=== PATIENT | female | born 1980 | race Caucasian/White ===

== ENCOUNTER → 2018-02-02 15:31 | Outpatient (REF) | payer BC, SELFPAY ==
--- NOTE | 2018-02-02 11:15 | PAPFT_PTH ---
PATIENT: Yoajna Cordova LOC: [facility] U#:[id number] AGE/SX: 45/F ROOM: RE02/02/[address]: QUITA Tao : 1980 BED: DIS: SPEC #: [id number] RECD: 02/02/18 17:32 STATUS: DIXON GRIFFIN #: [id number] CAITY: 02/02/18 11:[address]: Shannan Kennedy DEPT: [facility] Cytology RECD BY: Anna Marie Rogers ENTERED: 02/02/18 17:32 SP TYPE: PAPFT OTHR DR: QUITA Rehman Tissues: 1 - CX/ENDOCX FOR PAP SMEARS Procedures: PAP THIN PREP/UVM Screening Comments: [id number]
== END ==
LOC: LBN 15:31
PROVIDERS: PCP Nurse Practitioner Family; Visit Provider Nurse Practitioner Family
DX: Z12.4 Encounter for screening for malignant neoplasm of cervix (principal)
CPT/HCPCS: 88142

== ENCOUNTER → 2018-02-11 07:53 | Outpatient (REF) | payer SELFPAY | LOC: OM 07:53 | PROVIDERS: PCP Nurse Practitioner Family; Visit Provider Nurse Practitioner Family | DX: Z02.83 Encounter for blood-alcohol and blood-drug test (principal) ==

== ENCOUNTER 2019-06-30 15:33 | Outpatient (REF) | payer OTHER, SELFPAY ==
--- NOTE | 2019-06-30 14:55 | PAPFT_PTH ---
PATIENT: Yojana Cordova LOC: [facility] U#:[id number] AGE/SX: 39/F ROOM: RE06/30/[address]: Jim Kc RN : 1980 BED: DIS: 06/30/2019 SPEC #: [id number] RECD: 06/30/19 17:08 STATUS: DIXON GRIFFIN #: [id number] CAITY: 06/30/19 14:[address]: Jim Kc DEPT: [facility] Cytology RECD BY: Anna Marie Rogers ENTERED: 06/30/19 17:08 SP TYPE: PAPFT OTHR DR: Shruti Zaidi, QUITA Tissues: 1 - CX/ENDOCX FOR PAP SMEARS Procedures: PAP THIN PREP/UVM Screening HPV DNA PROBE Comments: [id number]
== END 2019-06-30 15:53 ==
LOC: LBN 15:33
PROVIDERS: PCP Nurse Practitioner Family; Visit Provider Advanced Practice Midwife
DX: Z12.4 Encounter for screening for malignant neoplasm of cervix (principal); Z11.51 Encounter for screening for human papillomavirus (HPV)
CPT/HCPCS: 88142; 87624

== ENCOUNTER 2019-08-17 01:26 | Outpatient (CLI) | payer OTHER, SELFPAY ==
--- NOTE | 2019-08-17 07:45 | DI.MAMMO_ITS ---
EXAM: MG MAMMO SCREENING CLINICAL HISTORY: screening, Z12.39 TECHNIQUE: Bilateral full field digital CC and MLO mammographic images were obtained with 3D tomosyn thesis and utilizing computer aided detection (CAD). COMPARISON: No priors for comparison. This is a baseline examination. FINDINGS: Masses/Architectural Distortion: None seen. Microcalcifications: No suspicious pleomorphic-type are seen. Skin Thickening/Nipple Retraction: None. IMPRESSION: 1. No significant interval change with no specific features of malignancy noted. 2. Unless there is more urgent need, screening mammography is recommended, as per [employer] guidelines. ACR BI-RAD Category- 1 Negative Breast Density - Category C - Heterogeneously dense The mammogram demonstrates the patient's breast tissue is dense. Dense breast tissue is very common a nd is not abnormal but dense breast tissue can make it harder to find cancer on a mammogram. Also, de nse breast tissue may increase their breast cancer risk. This information about the result of the [facility] mogram report was provided to the patient to raise their awareness. Use this report when you speak wi th the patient about their risks for breast cancer, which includes their family history. At that time , you may recommend for more screening tests (Ultrasound or MRI) as they might be useful based on the ir risk. A negative radiographic report should not delay biopsy if a dominant or clinically suspicious mass is present. Up to ten percent of cancers are not identified on mammography. A negative report may reinforce clinical impression. Adenosis and dense breasts may obscure an underlying neoplasm. False positive reports average 6 to 10%. Patient will receive a letter notifying them of these results.
== END 2019-08-17 01:46 ==
PROVIDERS: PCP Nurse Practitioner Family; Visit Provider Advanced Practice Midwife
DX: Z12.31 Encounter for screening mammogram for malignant neoplasm of breast (principal)
CPT/HCPCS: 77063; 77067

== ENCOUNTER 2019-08-31 10:14 | Outpatient (CLI) | payer OTHER, SELFPAY ==
[2019-08-31 10:45] LABS: Abs Immature Grans 0.01 k/cumm (0.0-0.09); Absolute Basophil Count 0.02 k/cumm (0.0-0.2); Absolute Eosinophil Count 0.13 k/cumm (0.0-0.7); Absolute Lymphocyte Count 1.94 k/cumm (1.2-3.4); Absolute Monocyte Count 0.51 k/cumm (0.11-0.7); Basophils % 0.3; Eosinophils % 2.2; HCT 42.7 % (36.0-46.0); HGB 14.3 g/dL (12.0-15.5); Immature Grans % 0.2 %; Lymphocytes % 32.3; Mean Corp. HGB Concentration 33.5 g/dL (32.0-36.0); Mean Corpuscular Hemoglobin 29.5 pg (27.0-33.0); Mean Platelet Volume 10.4 fL (8.0-11.0); Monocytes % 8.5; Neutrophils % 56.5; Platelet Count 196 x1000/uL (130-400); RBC 4.85 m/cumm (4.00-5.20); White Blood Cell Count 6.01 k/cumm (4.4-10.8)
== END 2019-08-31 10:34 ==
PROVIDERS: PCP Nurse Practitioner Family; Visit Provider Surgery
DX: R19.4 Change in bowel habit (principal)
CPT/HCPCS: 36415; 85025

== ENCOUNTER 2020-04-22 10:53 | Outpatient (REF) | payer OTHER, SELFPAY ==
[2020-04-24 13:06] LABS: SARS-CoV-2 RNA Not Detected (NotDetected); SARS-CoV-2 RNA Source Nasal/Nares
== END 2020-04-22 11:13 ==
LOC: LBN 10:53
PROVIDERS: PCP Nurse Practitioner Family; Visit Provider Pediatrics
DX: R05 Cough (principal)
CPT/HCPCS: U0003

== ENCOUNTER 2020-10-26 12:07 | Outpatient (REF) | payer OTHER, SELFPAY ==
--- NOTE | 2020-10-26 10:20 | PAPFT_PTH ---
PATIENT: Yojana Cordova LOC: [facility] U#:[id number] AGE/SX: 40/F ROOM: RE10/26/[address]: QUITA Tao : 1980 BED: DIS: 10/26/2020 SPEC #: [id number] RECD: 10/26/20 12:54 STATUS: DIXON REBryanna #: [id number] CAITY: 10/26/20 10:[address]: Shannan Kennedy DEPT: [facility] Cytology RECD BY: Anna Marie Rogers ENTERED: 10/26/20 12:54 SP TYPE: PAPFT CHAYA DR: QUITA Rehman Tissues: 1 - CX/ENDOCX FOR PAP SMEARS Procedures: PAP THIN PREP/UVM Screening HPV DNA PROBE Comments: [id number]
== END 2020-10-26 12:08 | disposition home or self-care (01) ==
LOC: LBN 12:07
PROVIDERS: PCP Nurse Practitioner Family; Visit Provider Nurse Practitioner Family
DX: Z12.4 Encounter for screening for malignant neoplasm of cervix (principal); Z11.51 Encounter for screening for human papillomavirus (HPV)
CPT/HCPCS: 88142; 87624

== ENCOUNTER 2020-10-29 03:18 | Outpatient (CLI) | payer OTHER, SELFPAY ==
[2020-10-29 08:32] LABS: Anion Gap 8.6 mmol/L (3-11); BUN 12 mg/dL (7-18); CO2 28.4 mmol/L (21.0-32.0); CREATININE 0.8 mg/dL (0.55-1.02); Calcium 8.8 mg/dL (8.5-10.1); Calculated LDL 135 mg/dL (<100); Chloride 104 mmol/L (98-107); Cholesterol 200 mg/dL (<200); Glucose 92 mg/dL (74-106); HDL Cholesterol 57 mg/dL (40-60); Sodium 141 mmol/L (136-145); Triglyceride 40 mg/dL (<150)
== END 2020-10-29 03:19 | disposition home or self-care (01) ==
LOC: LBO 03:19
PROVIDERS: PCP Nurse Practitioner Family; Visit Provider Nurse Practitioner Family
DX: Z00.00 Encounter for general adult medical examination without abnormal findings (principal); Z13.220 Encounter for screening for lipoid disorders
CPT/HCPCS: 36415; 80048; 80061

== ENCOUNTER 2021-02-01 12:35 | Outpatient (REF) | payer OTHER, SELFPAY ==
[2021-02-02 12:46] LABS: COVID-19 RT-PCR UVMMC Result Negative (Negative)
== END 2021-02-01 12:36 | disposition home or self-care (01) ==
LOC: LBN 12:35
PROVIDERS: PCP Nurse Practitioner Family; Visit Provider Pediatrics
DX: Z20.822 Contact with and (suspected) exposure to COVID-19 (principal)
CPT/HCPCS: U0003

== ENCOUNTER 2021-06-13 18:32 | Outpatient (REF) | payer OTHER, SELFPAY ==
[2021-06-14 01:39] LABS: COVID-19 RT-PCR UVMMC Result Negative (Negative)
== END 2021-06-13 18:33 | disposition home or self-care (01) ==
LOC: LBN 18:32
PROVIDERS: PCP Nurse Practitioner Family; Visit Provider Pediatrics
DX: Z20.822 Contact with and (suspected) exposure to COVID-19 (principal)
CPT/HCPCS: U0003

== ENCOUNTER → 2022-04-21 01:42 | Outpatient (CLI) | payer OTHER, SELFPAY ==
--- NOTE | 2022-04-21 08:30 | DI.US_ITS ---
Exam(s) US BREAST LT COMPLETE US BREAST RT COMPLETE MG MAMMO DIAGNOSTIC BI EXAM: MG MAMMO DIAGNOSTIC BI AND COMPLETE BREAST ULTRASOUND CLINICAL HISTORY: left breast lump, N63.20. TECHNIQUE: BILATERAL CC AND MLO mammographic images were obtained with 3D tomosynthesis technique a nd utilizing computer aided detection (CAD). We also performed spot compression views of the area of clinical concern in the left breast. Also performed BILATERAL COMPLETE BREAST ULTRASOUND including all 4 quadrants of both breasts, the re troareolar regions and both axillary regions. COMPARISON: Prior mammograms were reviewed, the most recent being August 2019. This 41-year-old ban ent feels a new lump in her left breast. FINDINGS: DIAGNOSTIC BILATERAL MAMMOGRAM: The fibroglandular pattern in both breasts is very dense, this somewhat decreasing the sensitivity of the mammogram for finding hidden underlying lesions. There are no obvious spiculated masses nor malignant-appearing microcalcification groups in either br east. There are numerous benign punctate microcalcifications noted bilaterally. There are noncalcified well-defined nodular densities bilaterally. There is no distinct mammographic ally visible nodule subjacent to the region of clinical interest skin marker. There is no new architectural distortion or skin thickening-traction. We proceeded with breast ultrasound. BILATERAL COMPLETE BREAST ULTRASOUND: RIGHT breast ultrasound reveals a 6 x 4 millimeter well-defined benign microcyst which corresponds to nodule on the mammogram. There is also a smaller 4 x 3 millimeter benign microcyst at the 1 o'clock position. There is also 4 x 3 millimeter microcyst at the 8 o'clock position and there is a 7 x 5 m illimeter microcysts at the 11 o'clock position. There are no solid lesions in all 4 quadrants of th e right breast. Skin Scanning of the right axilla is negative for significant adenopathy. LEFT breast ultrasound reveals a 5 x 3 millimeter benign microcysts at 12 o'clock position and a 5 x 4 millimeter microcyst at the 1 o'clock position. At the 3-4 o'clock position there is a finding which is difficult to determine asymmetric normal lobu le versus is small well-defined nodule such as fibroadenoma. This measures approximately 11 by 6 mil limeters. At the 9 o'clock and 11 o'clock positions there are 2 adjacent cysts which correspond to what this pa tient is feeling. Combined measurement of the cysts is 2.2 cm x 0.8 cm. No other findings in the 4 quadrants. Scanning of the left axilla is negative for significant adenopathy. IMPRESSION: 1. Very dense fibroglandular tissue on 3D tomography which reveals few nodules bilaterally, all of wh ich appear to be microcyst on bilateral breast ultrasound performed today. 2. What this patient is feeling in her left breast is 2 adjacent benign cysts with combined measureme nt of 2.2 cm x 0.8 cm. 3. Incidentally noted on ultrasound at 3 o'clock position of the left breast is a subtle finding whic h may be an isoechoic slightly lobulated 11 x 6 millimeter nodule (wider than taller with slightly in creased through transmission) such as a fibroadenoma versus just asymmetric glandular tissue at this level. Appropriate follow-up, as discussed by myself with the patient today, is repeat LEFT BREAST ULTRASOUN D in 3 months time to ensure stability of the finding described above at the 3 o'clock position.. The patient was informed of the findings and follow-up recommendations prior to leaving the [facility] t today. BI-RADS Category 3 month - Probably Benign Finding: Recommend follow-up LEFT BREAST ULTRASOUND in 3 M [facility]. Breast density Category C or D implies that the patient has dense breast tissue. Dense breast tissue can make it harder to find cancer on a mammogram. Dense breast tissue is also associated with an incr eased risk of breast cancer. This information about the result of the mammogram report was provided to the patient to raise their awareness. Use this report when you speak with the patient about their risks for breast cancer, which includes their family history. At that time, you may recommend additional screening tests (Ultrasoun d or MRI) as these tests may add significant information. A negative radiographic report should not delay biopsy if a dominant or clinically suspicious mass is present. Up to ten percent of cancers are not identified on mammography. A negative report may reinforce clinical impression. Adenosis and dense breasts may obscure an underlying neoplasm. False positive reports average 6 to 10%. Patient will receive a letter notifying them of these results.
== END ==
PROVIDERS: PCP Nurse Practitioner Family; Visit Provider Nurse Practitioner Family
DX: R92.0 Mammographic microcalcification found on diagnostic imaging of breast (principal); N60.01 Solitary cyst of right breast; N60.02 Solitary cyst of left breast
CPT/HCPCS: 76642; 77062; 77066; G0279

== ENCOUNTER 2022-08-27 01:23 | Outpatient (CLI) | payer OTHER, SELFPAY ==
--- NOTE | 2022-08-27 | DI.US_ITS ---
Exam(s) US NEEDLE LOCAL BREAST WO RAD EXAM: LEFT BREAST MASS,ultrasound guided bx COMPARISON: US US BREAST LT COMPLETE from 07/24/2022 TECHNIQUE: Ultrasound performed using standard protocol. FINDINGS: Sonography was provided for Dr. Zaafr Candelaria during the performance of a left breast biopsy. Please refer to the procedure report for complete details. DATA REPOSITORY:
--- NOTE | 2022-08-27 08:30 | BREAST_PTH ---
PATIENT: Yojana Cordova LOC: DI U#:[id number] AGE/SX: 42/F ROOM: RE08/27/[address]: Zafar Candelaria MD : 1980 BED: DIS: 08/27/2022 SPEC #: [id number] RECD: 08/27/22 12:49 STATUS: DIXON REQ #: [id number] CAITY: 08/27/22 08:[address]: Zafar Candelaria DEPT: Surgical Specimen RECD BY: Anna Marie Rogers ENTERED: 08/27/22 12:50 SP TYPE: Breast OTHR DR: QUITA Rehman Tissues: 1 - BREAST BX NEEDLE Procedures: GROSS AND MICRO LEVEL 4 Comments: [id number]
--- NOTE | 2022-08-27 15:17 | OPPNE_ITS ---
Date of service: 08/27/22 Time of Service: 08:15 Procedure Note Date of procedure: 08/27/22 Procedure: Left breast core needle biospy Surgeon/Proceduralist/Physician: Zafar Candelaria Procedure Diagnosis: Left breast mass Procedure Indications: Yojana is a 42-year-old who was undergoing 3-month follow-up for fibrocystic breast disease. On her most recent ultrasound, one of the lesions was noted to have increased in size from 11 mm to 17 mm. A core needle biopsy was recommended. I discussed the risks and benefits of the procedure with her, and she provided informed consent. Procedure Description: Patient needed assistance of real-time ultrasound guidance, lesion in the left breast was identified. Similar to previous notations, it was in the 3 o'clock position relative to the nipple. I prepped the skin adjacent to the ultrasound probe, and with the assistance of real-time ultrasound guidance, I anesthetized the skin, and the planned trajectory towards the cortical biopsy site using local anesthetic. Next, I made a small incision in the skin with an 11 blade scalpel. Next, under real-time ultrasound guidance, I advanced a 22 mm core needle biopsy device to the edge of the lesion. Again, with real-time ultrasound assistance, attempted 5 core needle biopsies. Four appropriate core specimens were obtained. I then deployed an ultra clip to radio breast tissue marker into the area of the lab. I applied gentle pressure to the skin to assist with hemostasis. I dressed the percutaneous biopsy site using a Band- Aid.
== END 2022-08-27 01:43 ==
LOC: DI 01:23
PROVIDERS: PCP Nurse Practitioner Family; Visit Provider Surgery
DX: N60.12 Diffuse cystic mastopathy of left breast (principal)
CPT/HCPCS: 19083; 88305; 76942

== ENCOUNTER → 2023-05-19 00:50 | Outpatient (CLI) | payer OTHER, SELFPAY ==
--- NOTE | 2023-05-19 12:45 | DI.MAMMO_ITS ---
Exam(s) MAMMO SCREENING EXAM: MAMMO SCREENING CLINICAL HISTORY: screening,z12.39. TECHNIQUE: Bilateral full field digital CC and MLO mammographic images were obtained with 3D tomosyn thesis and utilizing computer aided detection (CAD). COMPARISON: 2019 and 2021 FINDINGS: Masses: A biopsy marker clip is now present in the posterolateral left breast. There is an adjacent area of circumscribed nodularity which has increased in size and compared with the previous exam. Ul trasound is recommended for further evaluation. Circumscribed nodule noted in the supra area right b reast appears unchanged. Cyst was noted on prior ultrasound. Architectural Distortion: None seen. Microcalcifications: No suspicious pleomorphic-type are seen. Scattered benign calcifications bilat erally. Skin Thickening/Nipple Retraction: None. IMPRESSION: 1. Right breast: No significant interval change with no specific features of malignancy noted. 2. Left breast: Increased size of area of nodularity in the posterolateral left breast. Ultrasound r ecommended for further evaluation. BI-RADS Category 0 - Assessment Incomplete: Need additional imaging evaluation Breast Density - Category D - extremely dense Breast Density Category D: The mammogram demonstrates the patient's breast tissue is dense. Dense radu ast tissue is very common and is not abnormal but dense breast tissue can make it harder to find canc er on a mammogram. Also, dense breast tissue may increase their breast cancer risk. This information about the result of the mammogram report was provided to the patient to raise their awareness. Use th is report when you speak with the patient about their risks for breast cancer, which includes their f amily history. At that time, you may recommend for more screening tests (Ultrasound or MRI) as they m ight be useful based on their risk. A negative radiographic report should not delay biopsy if a dominant or clinically suspicious mass is present. Up to ten percent of cancers are not identified on mammography. A negative report may reinforce clinical impression. Adenosis and dense breasts may obscure an underlying neoplasm. False positive reports average 6 to 10%.
== END ==
PROVIDERS: PCP Nurse Practitioner Family; Visit Provider Nurse Practitioner Family
DX: Z12.31 Encounter for screening mammogram for malignant neoplasm of breast (principal); R92.343 Mammographic extreme density, bilateral breasts; R92.1 Mammographic calcification found on diagnostic imaging of breast
CPT/HCPCS: 77063; 77067

== ENCOUNTER 2023-10-01 10:20 | Day surgery (SDC) | payer OTHER, SELFPAY ==
--- NOTE | 2023-09-30 18:42 | W.PM.DSUDISC ---
Date of service: 10/01/23 Time of Service: 11:18 Discharge Plan Disposition Patient Disposition: Home Condition: Good Discharge Details Reason For Visit: screening colonscopy Attending Provider: Zafar Candelaria Primary Care Provider: Shruti Zaidi Home Meds and New Rx's Prescriptions: Continued cholecalciferol (vitamin D3) 4,000 unit capsule 4,000 unit PO DAILY Discontinued bisacodyl [Dulcolax (bisacodyl)] 5 mg tablet,delayed release (DR/EC) 5 mg PO ONCE Qty: 4 0RF polyethylene glycol 3350 17 gram/dose powder 17 g PO DAILY Qty: 238 0RF Discharge Instructions Instructions: Hemorrhoids (GEN), Colorectal Polyps (GEN) Additional Instructions: Yojana, we were able to complete your colonoscopy today without any difficulty. Your prep was excellent and I could see everything just fine. I did find 1 polyp. It was small in size. I removed it completely. It will be sent off for testing, and once we know the nature of that polyp, we can use that information to determine the timing of your next colonoscopy. Incidentally, you have some grade 1 internal hemorrhoids as well. Hopefully these never cause you any problems, but I did attach a little bit of information here regarding typical approaches to hemorrhoids. 1. If tolerated, consume a soft, low fiber diet for 1-2 days. 2. Do not drive, drink alcohol, operate machinery, make critical decisions, or do activities that require coordination or balance for 24 hours. 3. Because air was put into your colon during the procedure, expelling air from your rectum (passing gas or farting) is normal. 4. You may not have a bowel movement for 1-3 days because of the colonoscopy prep. This is normal. 5. Go directly to the emergency room if you notice any of the following: Develop chills (warm to touch), or if you have a thermometer and your temperature is above 101 Difficulty breathing or difficultly swallowing Persistent vomiting Severe abdominal pain, other than gas cramps Severe chest pain Black, tarry stools Any bleeding ? exceeding one tablespoon 6. Call your physician if the site where your intravenous was started becomes red, swollen, painful, and warm to touch. 7. Your physician has reviewed your pre-procedure medications. Please continue to take those medications as previously ordered. You will be given specific information/education regarding any changes to your medications before leaving. Activity:: Activity as Tolerated Diet:: As Tolerated Discharge Orders Discharge Orders: Discharge Order (Routine); Ordered 09/30/23 Ordered By: Zafar Candelaria DS: Diagnosis Discharge Diagnosis (1) Encounter for screening colonoscopy: Status: Acute Asessment and Plan: Follow-up on polypectomy results
--- NOTE | 2023-09-30 18:43 | COLE_ITS ---
Date of service: 10/01/23 Time of Service: 11:20 Colonoscopy Report Date of procedure: 10/01/23 Pre-op diagnosis general: screening colonoscopy Post-op diagnosis procedure note: other (Grade 1 internal hemorrhoids, colon polyp) Procedure: Colonoscopy with polypectomy Surgeon: Zafar Candelaria Anesthesia Type: General:No Airway Estimated blood loss (mL): 5 Pathology: other (0.25 cm flat polyp at 45 cm from the anus) Complications: None Disposition: same day Indications: Yojana is a 43 year old woman who needs a screening colonoscopy Prep: Miralax/Dulcolax Procedure Start Time: 11:01 Procedure End Time: 11:15 Retraction Time: 7 Findings: Grade 1 internal hemorrhoids, 0.25 cm flat polyp at 45 cm from the anus Procedure Description: After the induction of monitored anesthetic care, and with the patient in left lateral decubitus position, I began by performing an external anorectal exam.? Perineum and skin were normal, as was the anal verge.? There was no evidence of external hemorrhoids.? Next, I performed a digital rectal exam.? I did not appreciate any abnormal findings.? Next, I advanced a colonoscope into the rectal vault.? I performed retroflexion.? There are grade 1 internal hemorrhoids.? Using insufflation, I then advanced the colonoscope beyond the rectal folds and into the sigmoid colon before advancing towards the cecum.? The scope was noted to be in the cecum by identification of the ileocecal valve and appendiceal orifice.? I then began withdrawing the colonoscope using repeated irrigation as necessary for full evaluation of the colonic mucosa. Around 45 cm from the anal verge I identified a 0.25 cm polyp. ?It appeared flat in character. ?I was able to remove this with a cold forcep polypectomy. ?I examined the site, and there was minimal bleeding. ?Once this was completed, I continued to withdraw the scope and examine the remainder of the colonic mucosa.?Once the scope was withdrawn to the level of the rectum, great care was taken to examine portions of the rectal folds.? Finally, the scope was withdrawn and the patient was brought to the same-day surgery recovery unit as the anesthetic wore off. ?The findings and instructions were shared with the patient prior to discharge. [place] Bowel Prep [place] Bowel Prep Right Colon: 3 Left Colon: 3 Transverse Colon: 3 Total Score: 9
--- NOTE | 2023-10-01 06:18 | ANES.PREOP_ITS ---
General Info Date of Service Date Performed: 10/01/23 Height: 5 ft 1 in Weight: 51.738 kg Body Mass Index (BMI): 21.5 Surgical Procedure: Operation Date: 10/01/23 11:20 Proposed Procedure Side Surgeon p Colonoscopy Zafar Candelaria MD Meds Allergies and Home Medications Allergies Allergy/AdvReac Type Severity Reaction Status Date / Time Penicillins Allergy Mild Rash as Verified 10/01/23 10:32 child Home Medication Medication Instructions Recorded cholecalciferol (vitamin D3) 100 4,000 unit PO DAILY 06/30/19 mcg (4,000 unit) capsule Current Visit Medications: Current Medications Generic Name Dose Route Start Last Admin Trade Name Freq PRN Reason Stop Dose Admin Hyoscyamine Sulfate 0.125 mg 09/30/23 18:44 Hyoscyamine 0.125 Mg Sl/Oral/Chew SL 10/30/23 18:43 DIRECTED PRN Ringer's Solution 1,000 mls @ 80 mls/hr 10/01/23 06:00 IV 10/30/23 23:59 INFUSION [facility] IV Miscellaneous Supplies 1 each 10/01/23 06:00 Iv Access IV 10/30/23 23:59 DIRECTED [place] Ondansetron HCl 4 mg 09/30/23 18:44 Ondansetron 4 Mg/2 Ml Vial IVP 10/30/23 18:43 Q4H PRN PRN Nausea / Vomiting Sodium Chloride 0 ml 10/01/23 06:00 Normal Saline Flush 10 Ml Syr IV 10/30/23 23:59 PRN PRN Sodium Chloride 0 ml 10/01/23 06:00 Normal Saline 10 Ml Vial IJ 10/30/23 23:59 DIRECTED PRN Sterile Water 0 ml 10/01/23 06:00 Water,Injection,Sterile 10 Ml Vial IJ 10/30/23 23:59 DIRECTED PRN PFSH Active Problems Active Problems: Problem Status Onset Code Encounter for screening colonoscopy Z12.11 Hyperlipidemia E78.5 IBS (irritable bowel syndrome) K58.9 Sensorineural hearing loss (SNHL) of both ears H90.3 Medical History Medical History (Updated 09/30/23 @ 18:42 by Zafar Candelaria MD) Depression Abnormal Pap smear of cervix 2013 Nl pap. 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 Surgical History Surgical History H/O LEEP (08/24/14) For EARL 2 Tobacco Smoking/Tobacco Use Status: Never Passive smoking exposure: No Second hand exposure: Yes Alcohol Alcohol Intake: current Alcohol intake frequency: a few times a month Alcohol type: beer and wine Substance Use Substance use: Never Substance use type: does not use Counseling provided: none Prental History History 3 Para 2 Hx # Term Pregnancies Multiple births Hx # Pregnancies Ectopic pregnancies AB induced 1 Hx Number of Living Children 2 AB spontaneous Vital Signs and Lab Results Vital Signs Most Recent Vital Signs in EMR: Temp Pulse Resp BP Pulse Ox 36.4 C L 71 16 110/67 100 10/01/23 10:33 10/01/23 10:33 10/01/23 10:33 10/01/23 10:33 10/01/23 10:33 Lab Results Blood Type / Crossmatch: No Data to Display Complete Blood Count: No Data to Display Complete Metabolic Panel: No Data to Display Liver Function Panel: No Data to Display Coagulation Panel: No Data to Display Cardiac Panel: No Data to Display Arterial Blood Gas: No Data to Display Venous Blood Gas: No Data to Display Pancreas Panel: No Data to Display Thyroid Panel: No Data to Display Infectious Disease: No Data to Display Blood Cultures: No Data to Display Toxicology Panel: No Data to Display Panel: No Data to Display Anesthesia Assessment and Plan Anesthesia History Personal History: No History of Anesthesia Complications Family History: No Family History of Anesthesia Complications Exercise Tolerance Exercise Tolerance: Metabolic Equivalents>4 Cardiac & Pulmonary Exam Cardiac Exam: Normal S1/S2 Heart Sounds Pulmonary Exam: Clear Bilateral Breath Sounds Implantable Cardiac Device Does patient have a Pacemaker or an ICD?: No Airway Exam Known Difficult Airway: No Mallampati Class: 1 Mouth Opening: Normal (> 3cm) Thyromental Distance: Greater than 3 cm Neck Range of Motion: Full ROM Neck Circumference: Normal Teeth Condition: Normal Dentition ASA Classification ASA Score: ASA 2 Emergency Case?: No NPO Status NPO Status: NPO Clears >2 hours, Solids >8 hours Status Status: Negative HCG Anesthesia Plan Resuscitation Status: Full Code Anesthesia Technique: General Anesthesia Airway Planned: Natural Airway Monitors Used: Standard Monitors Preoperative Comments:: 43 yo female for colo. Sig PMHx: depression, never smoker, occ EtOH.
[2023-10-01 10:33] VITALS: BP 110/67; PULSE 71; RESP 16; TEMP 36.4; O2SAT 100
[2023-10-01] MEDS: Lactated Ringers 1,000 ML 80 ML IV (10:43)
[2023-10-01 10:45] VITALS: BMI 21.5
--- NOTE | 2023-10-01 11:11 | BOWEL_PTH ---
PATIENT: Yojana Cordova LOC: [facility] U#:[id number] AGE/SX: 43/F ROOM: RE10/01/[address]: Zafar Candelaria MD : 1980 BED: DIS: 10/01/2023 SPEC #: [id number] RECD: 10/01/23 12:38 STATUS: DIXON RE #: [id number] CAITY: 10/01/23 11:[address]: Zafar Candelaria DEPT: Surgical Specimen RECD BY: Anna Marie Rogers ENTERED: 10/01/23 12:38 SP TYPE: Bowel OTHR DR: QUITA Rehman Tissues: 1 - BIOPSY BOWEL Procedures: GROSS AND MICRO LEVEL 4 Comments: [id number]
[2023-10-01 11:20] VITALS: BP 100/60; PULSE 66; RESP 16; TEMP 36.4; O2SAT 100
[2023-10-01 12:00] VITALS: BP 128/84; PULSE 52; RESP 16; TEMP 36.4; O2SAT 100
--- NOTE | 2023-10-01 12:23 | W.ANESPOSTOP ---
Postoperative Evaluation Date, Time and Location Date Performed: 10/01/23 Time Performed: 11:20 Patient Location: Day Surgery Unit Vital Signs Most Recent Imported Vital Signs: Most Recent Vital Signs Temp Pulse Resp BP Pulse Ox 36.4 C L 52 L 16 128/84 100 10/01/23 12:00 10/01/23 12:00 10/01/23 12:00 10/01/23 12:00 10/01/23 12:00 Pain Score Most Recent Pain Score: Most Recent Pain Score Pain Level 0 10/01/23 12:00 Assessment Mental Status: Awake (Alert & Oriented to Patient Baseline) Airway and Respiratory Function: Patent airway with normal (patient baseline) respiratory exam Cardiovascular Function: Hemodynamically Stable Hydration Status: Adequately Hydrated Nausea & Vomiting: No Nausea or Vomiting Pain: Pt. Denies Any Pain Peripheral Nerve Block: Patient did not receive a nerve block
== END 2023-10-01 12:15 | disposition home or self-care (01) ==
LOC: SUR 10:20
PROVIDERS: PCP Nurse Practitioner Family; Visit Provider Surgery
PROC: 0DJD8ZZ Inspection of Lower Intestinal Tract, Via Natural or Artificial Opening Endoscopic (ICD-10-PCS; CPT 45378; principal; 2023-10-01 11:15)
DX: Z12.11 Encounter for screening for malignant neoplasm of colon (principal); K64.0 First degree hemorrhoids; D12.5 Benign neoplasm of sigmoid colon; E78.5 Hyperlipidemia, unspecified; K58.9 Irritable bowel syndrome, unspecified
CPT/HCPCS: 45380; 81025; 88305; J2001; J2704

== ENCOUNTER 2024-04-12 18:10 | Outpatient (REF) | payer OTHER, SELFPAY ==
--- NOTE | 2024-04-12 16:40 | ENDOMET_PTH ---
PATIENT: Yojana Cordova LOC: [facility] U#:[id number] AGE/SX: 43/F ROOM: RE04/12/[address]: aYnet Rojas MD : 1980 BED: DIS: 04/12/2024 SPEC #: [id number] RECD: 04/12/24 18:14 STATUS: DIXON REQ #: [id number] CAITY: 04/12/24 16:[address]: Yanet Rojas DEPT: Surgical Specimen RECD BY: Anna Marie Rogers ENTERED: 04/12/24 18:15 SP TYPE: Endomet CHAYA DR: QUITA Rehman Tissues: 1 - ENDOMETRIUM BX/CURRETTE Procedures: GROSS AND MICRO LEVEL 4 Comments: [id number]
== END 2024-04-12 18:11 | disposition home or self-care (01) ==
LOC: LBN 18:10
PROVIDERS: PCP Nurse Practitioner Family; Visit Provider Obstetrics & Gynecology
DX: R53.83 Other fatigue (principal); D25.9 Leiomyoma of uterus, unspecified; R33.9 Retention of urine, unspecified; N92.0 Excessive and frequent menstruation with regular cycle
CPT/HCPCS: 88305

== ENCOUNTER 2024-05-20 00:19 | Outpatient (CLI) | payer OTHER, SELFPAY ==
--- NOTE | 2024-05-20 08:27 | DI.MAMMO_ITS ---
Exam(s) MAMMO SCREENING EXAM: MAMMO SCREENING CLINICAL HISTORY: screening,Z12.39 TECHNIQUE: Bilateral full field digital CC and MLO mammographic images were obtained with 3D tomosyn thesis and utilizing computer aided detection (CAD). COMPARISON: 2019 through 2022 FINDINGS: Masses: Stable circumscribed area of nodularity in the lateral left breast with biopsy marker in plac e. Architectural Distortion: None seen. Microcalcifications: No suspicious pleomorphic-type are seen. Skin Thickening/Nipple Retraction: None. IMPRESSION: 1. No significant interval change with no specific features of malignancy noted. 2. Unless there is more urgent need, screening mammography is recommended, as per [employer] guidelines. BI-RADS Category 2 - Benign Findings Breast Density - Category D - Extremely dense Breast density category C or D implies that the patient has dense breast tissue. Dense breast tissue is very common and is not abnormal but dense breast tissue can make it harder to find cancer on a ma mmogram. Also, dense breast tissue may increase their breast cancer risk. This information about the result of the mammogram report was provided to the patient to raise their awareness. Use this report when you speak with the patient about their risks for breast cancer, which includes their family hist ory. At that time, you may recommend for more screening tests (Ultrasound or MRI) as they might be us eful based on their risk. A negative radiographic report should not delay biopsy if a dominant or clinically suspicious mass is present. Up to ten percent of cancers are not identified on mammography. A negative report may reinforce clinical impression. Adenosis and dense breasts may obscure an underlying neoplasm. False positive reports average 6 to 10%. Patient will receive a letter notifying them of these results.
== END 2024-05-20 00:39 ==
LOC: DI 00:19
PROVIDERS: PCP Nurse Practitioner Family; Visit Provider Nurse Practitioner Family
DX: Z12.31 Encounter for screening mammogram for malignant neoplasm of breast (principal); D24.2 Benign neoplasm of left breast; R92.343 Mammographic extreme density, bilateral breasts
CPT/HCPCS: 77063; 77067

== ENCOUNTER 2024-09-15 03:21 | Outpatient (CLI) | payer OTHER, SELFPAY ==
[2024-09-15 07:39] LABS: HCT 39.2 % (36.0-46.0); HGB 12.2 g/dL (11.2-15.7); MCH 25.6 pg (27.0-33.0); MCHC 31.1 % (32.0-36.0); MCV 82 fL (80-95); MPV 11.3 fL (8.0-11.0); Platelet Count 182 10^3/uL (130-400); RBC 4.76 10^6/uL (3.93-5.22); RDW 14.4 % (11.7-14.6); RDW-SD 42.8 fL; WBC 4.88 10^3/uL (4.4-10.8)
[2024-09-15 08:46] LABS: Ferritin 8 ng/mL (8-252)
== END 2024-09-15 03:22 | disposition home or self-care (01) ==
PROVIDERS: PCP Nurse Practitioner Family; Visit Provider Obstetrics & Gynecology
DX: N92.0 Excessive and frequent menstruation with regular cycle (principal)
CPT/HCPCS: 36415; 85027; 82728

== ENCOUNTER 2025-02-01 19:47 | Outpatient (REF) | payer OTHER, SELFPAY | END 2025-02-01 19:48 | disposition home or self-care (01) | LOC: LBN 19:47 | PROVIDERS: PCP Nurse Practitioner Family; Visit Provider Nurse Practitioner Family | DX: Z13.0 Encounter for screening for diseases of the blood and blood-forming organs and certain disorders involving the immune mechanism (principal) | CPT/HCPCS: 85660 ==

== ENCOUNTER 2025-03-29 10:28 | Outpatient (CLI) | payer OTHER, SELFPAY ==
[2025-03-29 14:25] LABS: Iron 27 ug/dL (50-170); Total Iron Binding Capacity 385 ug/dL (250-450)
[2025-03-29 14:32] LABS: Abs Immature Grans 0.01 10^3/uL (0.0-0.06); HCT 40.8 % (36.0-46.0); HGB 12.3 g/dL (11.2-15.7); Immature Grans % 0.2 %; MCH 25.3 pg (27.0-33.0); MCHC 30.1 % (32.0-36.0); MCV 84 fL (80-95); MPV 11.6 fL (8.0-11.0); Platelet Count 253 10^3/uL (130-400); RBC 4.87 10^6/uL (3.93-5.22); RDW 14.9 % (11.7-14.6); RDW-SD 45.6 fL; WBC 5.20 10^3/uL (4.4-10.8)
[2025-03-29 14:46] LABS: ALT 34 U/L (14-59); AST 16 U/L (15-37); Albumin 3.9 g/dL (3.4-5.0); Alkaline Phosphatase 89 U/L (46-116); Anion Gap 9.3 mmol/L (3-11); BUN 9 mg/dL (7-18); Bilirubin, Total 0.5 mg/dL (0.2-1.0); CO2 27.7 mmol/L (21.0-32.0); Calcium 9.3 mg/dL (8.5-10.1); Chloride 102 mmol/L (98-107); Estimated GFR 112.04 (mL/min/1.73m2); Ferritin 9 ng/mL (8-252); Glucose 85 mg/dL (74-106); Potassium 4.0 mmol/L (3.5-5.1); Sodium 139 mmol/L (136-145); TSH (W/Ref FT4) 1.26 uIU/mL (0.36-3.74); Total Protein 8.0 g/dL (6.4-8.2); Vitamin B12 413 pg/mL (193-986)
[2025-03-29 14:50] LABS: Folate > 20.0 ng/mL (8.6-20.0)
[2025-03-29 15:18] LABS: Hemoglobin A1C 5.7 % (<5.7)
[2025-03-30 09:51] LABS: Transferrin 305 mg/dL (201-352)
[2025-03-30 10:05] LABS: Hepatitis C Ab w Rflx HCV PCR Negative (Negative)
[2025-03-30 10:15] LABS: HBs Antibody, Quant 988.0 mIU/mL (See Note); Hepatitis B Surface Antigen Negative (Negative)
[2025-03-30 10:21] LABS: HIV-1/2 Ag & Ab Screen Negative (Negative)
== END 2025-03-29 10:29 | disposition home or self-care (01) ==
LOC: LOS 10:28
PROVIDERS: PCP Nurse Practitioner Family; Visit Provider Nurse Practitioner Family
DX: E61.1 Iron deficiency (principal); Z11.59 Encounter for screening for other viral diseases; Z11.4 Encounter for screening for human immunodeficiency virus [HIV]
CPT/HCPCS: 36415; 80053; 86704; 86706; 86803; 87340; 87389; 82607; 82728; 82746; 83036; 83540; 83550; 84443; 84466; 85025

== ENCOUNTER → 2025-05-23 00:20 | Outpatient (CLI) | payer OTHER, SELFPAY ==
--- NOTE | 2025-05-23 06:00 | DI.MAMMO_ITS ---
Exam(s) MAMMO SCREENING EXAM: MAMMO SCREENING CLINICAL HISTORY: screening,z12.39. TECHNIQUE: Bilateral full field digital CC and MLO mammographic images were obtained with 3D tomosynthesis and utilizing computer aided detection (CAD). COMPARISON: 2019 through 2023 FINDINGS: Masses: Stable area of circumscribed nodularity is again noted in the upper outer quadrant of the left breast. There is an adjacent biopsy marker. Architectural Distortion: None seen. Microcalcifications: No suspicious pleomorphic-type are seen. Skin Thickening/Nipple Retraction: None. IMPRESSION: 1. No significant interval change with no specific features of malignancy noted. 2. Unless there is more urgent need, annual screening mammography is recommended, as per [employer] guidelines. BI-RADS Category 2 - Benign Findings Breast Density - Category D - The breast are extremely dense, which lowers the sensitivity of the mammography. Breast density Category C or D implies that the patient has dense breast tissue. Dense breast tissue can make it harder to find cancer on a mammogram. Dense breast tissue is also associated with an increased risk of breast cancer. This information about the result of the mammogram report was provided to the patient to raise their awareness. Use this report when you speak with the patient about their risks for breast cancer, which includes their family history. At that time, you may recommend additional screening tests (Ultrasound or MRI) as these tests may add significant information. A negative radiographic report should not delay biopsy if a dominant or clinically suspicious mass is present. Up to ten percent of cancers are not identified on mammography. A negative report may reinforce clinical impression. Adenosis and dense breasts may obscure an underlying neoplasm. False positive reports average 6 to 10%. Patient will receive a letter notifying them of these results.
== END ==
LOC: DI 00:21
PROVIDERS: PCP Nurse Practitioner Family; Visit Provider Nurse Practitioner Family
DX: Z12.31 Encounter for screening mammogram for malignant neoplasm of breast (principal); N63.21 Unspecified lump in the left breast, upper outer quadrant
CPT/HCPCS: 77063; 77067